=== PATIENT | male | born 1985 | race Caucasian/White ===

== ENCOUNTER 2018-04-07 10:49 | Emergency (ER) | payer OTHER ==
[2018-04-07 10:57] VITALS: BP 118/76; PULSE 88; TEMP 98.6; BMI 21.6
--- NOTE | 2018-04-07 11:41 | PDOC ---
History of Present Illness - General Chief Complaint: Injury Stated Complaint: RT FINGER/HAND INJURY Time Seen by Provider: 04/07/18 11:11 History Source: Patient Exam Limitations: No Limitations - History of Present Illness Initial Comments: 04/07/18 11:36 32-year-old male without significant past medical history presents emergency Department with right fourth and fifth finger pain status post being struck by golfball. Patient states while playing golf and parents shot came from another fairway striking him in the right hand. Denies numbness or tingling to the affected area. Past History - Past Medical History Allergies/Adverse Reactions: Allergies Allergy/AdvReac Type Severity Reaction Status Date / Time No Known Allergies Allergy Verified 04/07/18 10:53 Home Medications: Ambulatory Orders NK [No Known Home Medication] 04/07/18 COPD: No - Suicide/Smoking/Psychosocial Hx Smoking History: Never smoked Information on smoking cessation initiated: No Hx Alcohol Use: No Drug/Substance Use Hx: No Substance Use Type: None Review of Systems - Review of Systems Able to Perform ROS?: Yes Is the patient limited [place] proficient: No Constitutional: No: Symptoms Reported HEENTM: No: Symptoms Reported Respiratory: No: Symptoms reported Cardiac (ROS): No: Symptoms Reported ABD/GI: No: Symptoms Reported : No: Symptoms Reported Musculoskeletal: Yes: See HPI Integumentary: No: Symptoms Reported Neurological: No: Symptoms reported Endocrine: No: Symptoms Reported *Physical Exam - Vital Signs Last Vital Signs Temp Pulse Resp BP Pulse Ox 98.6 F 88 16 118/76 100 04/07/18 10:53 04/07/18 10:53 04/07/18 10:53 04/07/18 10:53 04/07/18 10:53 - Physical Exam General Appearance: Yes: Appropriately Dressed. No: Apparent Distress Extremity: positive: Swelling (proximal phalanx of fourth and fifth digits of the right hand) ED Treatment Course - RADIOLOGY Radiology Studies Ordered: Category Date Time Status FINGER(S) RIGHT [RAD] Stat Radiology 04/07/18 11:36 Ordered Medical Decision Making - Medical Decision Making 04/07/18 11:39 A/P: 32-year-old male with pain to the fourth and fifth digits of his right hand status post being struck by a golf ball No palpable deformity noted No crepitus present Full sensation distal to injury Full range of motion of all digits against resistance X-ray, patient is refusing pain medication at this time, reassess 04/07/18 11:59 Wet read of x-rays by me: No fracture dislocation is noted. I will ronnie tape the fingers and discharge patient with orthopedic follow-up. *DC/Admit/Observation/Transfer Diagnosis at time of Disposition: Finger contusion Qualifiers: Encounter type: initial encounter Finger: little finger Damage to nail status: without damage Laterality: right Qualified Code(s): S60.051A - Contusion of right little finger without damage to nail, initial encounter - Discharge Dispostion Disposition: HOME Condition at time of disposition: Stable Decision to Admit order: No - Referrals Referrals: Thad West MD [Primary Care Provider] - Virgil Estrella MD [Staff Physician] - - Patient Instructions Additional Instructions: Take Tylenol or Motrin as needed for pain. Follow manufacturers instructions for appropriate dosage. You've been given the number for an orthopedist. If symptoms do not resolve within the next 7 days call the orthopedist for further evaluation. Return to emergency department for any concerns. Thank you very much for choosing us to provide your emergent healthcare needs. - Post Discharge Activity
== END 2018-04-07 12:17 | disposition home or self-care (01) ==
LOC: JERFT 10:49
DX: S60.051A Contusion of right little finger without damage to nail, initial encounter (principal); W21.04XA Struck by golf ball, initial encounter; Y93.53 Activity, golf; Y92.39 Other specified sports and athletic area as the place of occurrence of the external cause; Y99.8 Other external cause status
CPT/HCPCS: 73140-TC-RT-FY; 99281-25